=== PATIENT | female | born 1965 | race African-American/Black ===

== ENCOUNTER 2018-03-24 08:36 | Emergency (ER) | payer BC ==
[2018-03-24 08:59] VITALS: TEMP 98.9; BMI 33.4
[2018-03-24] MEDS ORDERED: ACETAMINOPHEN 325 MG TABLET (FP) PO ONE (09:39)
--- NOTE | 2018-03-24 09:39 | PDOC ---
History of Present Illness - History of Present Illness Initial Comments: 03/24/18 10:29 The patient is a 52 year old female with a past medical history of HTN here today for evaluation of a cough and headache. The patient reports that her cough began one week ago that is productive of yellow sputum. The patient notes her cough began shortly after that and rates it as a 7/10 in severity, localized to the left side of her head, worse when coughing, and is productive of yellow sputum. The patient notes going to and was given mucinex which helped slightly. The patient went to work today after taking tylenol and had her blood pressure which was 160/110 and was told to come to the ER. Patient reports that she is perimenopausal. Patient denies lightheadedness. Denies fever, chills. Denies chest pain, shortness of breath. Denies nausea, vomiting, diarrhea, abdominal pain. Denies lower extremity edema. Denies urinary symptoms. Denies neurologic symptoms. Allergies: NKA Social history: denies tobacco and drug use Surgical history: MSK surgery PCP: none reported <Zachary Jean Baptiste - Last Filed: 03/24/18 10:29> - General History Source: Patient Exam Limitations: No Limitations <Glory Giordano - Last Filed: 03/24/18 11:02> - General Chief Complaint: Blood Pressure Problem Stated Complaint: BLOOD PRESSURE PROBLEM Time Seen by Provider: 03/24/18 09:17 Past History <Zachary Jean Baptiste - Last Filed: 03/24/18 10:29> - Past Medical History CVA: No COPD: No - Immunization History Immunization Up to Date: Yes - Suicide/Smoking/Psychosocial Hx Smoking History: Never smoked Hx Alcohol Use: No Drug/Substance Use Hx: No Substance Use Type: None <Glory Giordano - Last Filed: 03/24/18 11:02> - Past Medical History Allergies/Adverse Reactions: Allergies Allergy/AdvReac Type Severity Reaction Status Date / Time No Known Allergies Allergy Verified 03/24/18 09:28 Home Medications: Ambulatory Orders Albuterol Sulfate Inhaler - [Ventolin HFA Inhaler -] 1 - 2 inh PO Q4H PRN #1 inhaler 03/24/18 Amlodipine Besylate 10 mg PO DAILY 03/24/18 Pseudoephedrine HCl [Sudafed] 30 mg PO Q6H PRN #30 tablet 03/24/18 Review of Systems - Review of Systems Able to Perform ROS?: Yes Comments:: 03/24/18 10:26 GENERAL/CONSTITUTIONAL: No fever or chills. No weakness. no sweats. HEAD, EYES, EARS, NOSE AND THROAT: No change in vision or hearing. No ear pain or discharge. No sore throat or mouth pain. No difficulty swallowing. + congestion. +neck pain CARDIOVASCULAR: No chest pain or palpitations, syncope or edema. RESPIRATORY: No SOB, No wheezing, or hemoptysis. +cough GASTROINTESTINAL No nausea/vomiting. No diarrhea or constipation. No bloody stools. GENITOURINARY: No hematuria, dysuria, frequency, urgency or other changes. MUSCULOSKELETAL: No joint or muscle swelling or pain. +neck pain. no back pain SKIN: No rash or changes in skin color or lesions. NEUROLOGIC: +headache ALLERGIC/IMMUNOLOGIC: No allergies All other systems reviewed and negative, or as documented in HPI. <Glory Giordano - Last Filed: 03/24/18 11:02> *Physical Exam - Vital Signs Last Vital Signs Temp Pulse Resp BP Pulse Ox 98.9 F 65 16 137/50 L 99 03/24/18 08:56 03/24/18 08:56 03/24/18 08:56 03/24/18 08:56 03/24/18 08:56 <Zachary Jean Baptiste - Last Filed: 03/24/18 10:29> - Vital Signs Last Vital Signs Temp Pulse Resp BP Pulse Ox 98.9 F 65 16 137/50 L 99 03/24/18 08:56 03/24/18 08:56 03/24/18 08:56 03/24/18 08:56 03/24/18 08:56 - Physical Exam Comments: 03/24/18 10:26 General: Well appearing, awake and alert, NAD. HEENT: NCAT, PERRL, EOMI, clear conjunctiva, anicteric, moist mucus membranes, clear oropharynx, no oral lesions.. Normal phonation. +left maxillary sinus tender to percussion. Neck: neck supple, FROM Resp: CTAB, normal and even respirations, no respiratory distress CVS: RRR, no murmurs, 2+ peripheral pulses throughout, no peripheral edema Abdomen: soft, NTND, no peritoneal signs. Back: nontender, normal inspection and ROM MSK: no edema, GAFFNEY x4, ROM intact. No clubbing or cyanosis. normal bulk and tone. Neuro: alert, oriented appropriately Skin: warm and well perfused, cap refill <2 sec, normal color <Glory Giordano - Last Filed: 03/24/18 11:02> Moderate Sedation - Procedure Monitoring Vital Signs: Procedure Monitoring Vital Signs Temperature 98.9 F 03/24/18 08:56 Pulse Rate 65 03/24/18 08:56 Respiratory Rate 16 03/24/18 08:56 Blood Pressure 137/50 L 03/24/18 08:56 O2 Sat by Pulse Oximetry (%) 99 03/24/18 08:56 <Zachary Jean Baptiste - Last Filed: 03/24/18 10:29> - Procedure Monitoring Vital Signs: Procedure Monitoring Vital Signs Temperature 98.9 F 03/24/18 08:56 Pulse Rate 65 03/24/18 08:56 Respiratory Rate 16 03/24/18 08:56 Blood Pressure 137/50 L 03/24/18 08:56 O2 Sat by Pulse Oximetry (%) 99 03/24/18 08:56 <Glory Giordano - Last Filed: 03/24/18 11:02> ED Treatment Course - Medications Given in the ED: ED Medications Discontinued Medications Generic Name Dose Route Start Last Admin Trade Name Freq PRN Reason Stop Dose Admin Acetaminophen 975 mg 03/24/18 09:39 03/24/18 10:18 Tylenol - PO 03/24/18 09:40 Not Given ONCE ONE Albuterol/Ipratropium 1 amp 03/24/18 10:10 03/24/18 10:17 Duoneb - NEB 03/24/18 10:11 1 amp ONCE ONE Administration Ibuprofen 600 mg 03/24/18 10:09 03/24/18 10:17 Motrin - PO 03/24/18 10:10 600 mg ONCE ONE Administration <Zachary Jean Baptiste - Last Filed: 03/24/18 10:29> Medical Decision Making - Medical Decision Making 03/24/18 10:10 [place] 52 YOF with h/o HTN presenting with occipital headache x 5 days, a/w left sided neck strain. +nasal congestion and cough x 1 week. no f/c. 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 no travel. vitals wnl, HTN resolved. otherwise asymptomatic. no indication to treat, also on home amlodipine which she took this morning for her established HTN. can get rechecked with primary doctor. Ddx. bronchitis, viral syndrome, pharyngitis, sinus headache, sinus congestion. clinically appears as acute sinusitis with 1 week duration, actually improving. no fever, no systemic findings to suggest severe or bacterial infection. doubt [employer] pathology. well appearing. CXR clear, no infiltrate. given duoneb x 1 here, with improved bronchospastic cough. normal HEENT exam. normal sats here, no respiratory distress, improved, ambulatory without symptoms. recommended warm tea and salt water gargles. albuterol inhaler PRN 4 hours as needed for cough. PRN tylenol/motrin for analgesia. can also use OTC nasal decongestants. salt water gargles and warm lemon tea is appropriate as well. minimize spread of infection given contagious nature, and cover your mouth and wash your hands adequately with soap and water. DC home in stable condition, return precautions discussed. 03/24/18 10:21 03/24/18 10:28 <Glory Giordano - Last Filed: 03/24/18 11:02> *DC/Admit/Observation/Transfer - Attestations Scribe Attestion: 03/24/18 10:29 Documentation prepared by SHAR Tripp, acting as medical office assistant instructor for Glory Giordano MD, MD. <Zachary Jean Baptiste - Last Filed: 03/24/18 10:29> - Discharge Dispostion Decision to Admit order: No - Attestations Physician Attestion: 03/24/18 10:26 I, Glory Giordano MD, attest that this document has been prepared under my direction and personally reviewed by me in its entirety. I further attest, that it accurately reflects all work, treatment, procedures and medical decision -making performed by me. <Glory Giordano - Last Filed: 03/24/18 11:02> Diagnosis at time of Disposition: Sinusitis, Viral syndrome - Discharge Dispostion Disposition: HOME Condition at time of disposition: Good - Prescriptions Prescriptions: Albuterol Sulfate Inhaler - [Ventolin HFA Inhaler -] 1 - 2 inh PO Q4H PRN #1 inhaler PRN Reason: Cough Pseudoephedrine HCl [Sudafed] 30 mg PO Q6H PRN #30 tablet PRN Reason: Nasal Congestion - Referrals Referrals: [facility] [place] [facility] [Provider Group] [facility] [Provider Group] - Patient Instructions Printed Discharge Instructions: DI for Sinusitis, DI for Viral Upper Respiratory Infection -- Adult Additional Instructions: can also use OTC nasal decongestants. prescription for sudafed tablet every 6 hours as needed for congestion you can also use over the counter nasal decongestants such as flonase. salt water gargles and warm lemon tea is appropriate as well. minimize spread of infection given contagious nature, and cover your mouth and wash your hands adequately with soap and water. your xray was clear, most likely a viral illness your headache is likely related to sinus infection that is most likely viral and requires at least 2-3 weeks to full resolve. may also use humidifier and air purifier. you can use the albuterol inhaler every 6 hours for your cough. - Post Discharge Activity Forms/Work/School Notes: Back to Work
[2018-03-24] MEDS ORDERED: IBUPROFEN 600 MG TABLET (FP) PO ONE ×2 (10:09→10:10)
[2018-03-24] MEDS ORDERED: ALBUTEROL SO4 2.5/IPRATROPIUM 0.5 INH SOL 3 ML VIAL.NEB. NEB ONE ×2 (10:10)
[2018-03-24 10:50] VITALS: BP 136/91; PULSE 62
== END 2018-03-24 10:51 | disposition home or self-care (01) ==
LOC: JER 08:36
PROC: 3E0F7GC Introduction of Other Therapeutic Substance into Respiratory Tract, Via Natural or Artificial Opening (ICD-10-PCS; principal; 2018-03-24)
DX: J01.90 Acute sinusitis, unspecified (principal)
CPT/HCPCS: 71046-TC-FY; 99282-25